=== PATIENT | female | born 1970 | race African-American/Black ===

== ENCOUNTER 2020-11-08 06:16 | Day surgery (SDC) | payer OTHER ==
[2020-11-06 22:03] LABS: COVID AG,FIA SOURCE NASOPHARYNGEAL
[~2020-11-08] VITALS: Ht 170.2 cm; Wt 128.2 kg
[~2020-11-08 06:16] MED LIST: ALBU8.5H8 IH; BUPR-93 PO; CHOL100018 PO; CYCL10 PO; DSS100 PO; FERR-89 PO; FLUT16H NASAL; FOLI0.4T6 PO; GABA-1181 PO; GLYC1TAB11 PO; HYDR-1475 PO; HYDR-3965 PO; MELO-107 PO; MONT-35 PO; OMEP20 PO; P-EP-31 PO; PRED10 PO; RANI150T7 PO; SODIUM CHLORIDE 0.9% 1,000 ML ONE; SYMB8060 IH; THEO400T3 PO; VITA1TAB22 PO
[2020-11-08] MEDS ORDERED: SODIUM CHLORIDE 0.9% 1,000 ML IV ONE (07:00)
[2020-11-08] MEDS ORDERED: MIDAZOLAM HCL 2 MG/2 ML VIAL ONE (07:32)
[2020-11-08] MEDS ORDERED: FentaNYL CITRATE PF 100 MCG/2 ML VIAL ONE (07:32)
[2020-11-08] MEDS ORDERED: MethylPREDNISolone SOD SUCC 125 MG/2 ML VIAL IVP ONE (08:45)
[2020-11-08] MEDS ORDERED: ALBUTEROL SULFATE 2.5 MG/0.5 ML NEB SOLUTION NEB ONE ×2 (16:46→16:50)
[2020-11-08] MEDS ORDERED: BENZOCAINE 20% 50 MCG/SPRAY 57 GM ONE ×2 (16:46→16:50)
[2020-11-08] MEDS ORDERED: LIDOCAINE 2% 30 ML JELLY ONE ×2 (16:49→16:50)
[2020-11-08] MEDS ORDERED: LIDOCAINE 4% 50 ML SOLUTION ONE (16:50)
[2020-11-08] MEDS ORDERED: OXYGEN THERAPY IH SCH (20:00)
== END 2020-11-08 10:10 | disposition home or self-care (01) ==
LOC: SURGERY 06:16
PROVIDERS: ATTEND Internal Medicine Critical Care Medicine
DX: R05 Cough (principal); R04.2 Hemoptysis; Z20.828 Contact with and (suspected) exposure to other viral communicable diseases; J34.89 Other specified disorders of nose and nasal sinuses; J98.8 Other specified respiratory disorders; J38.4 Edema of larynx; B37.0 Candidal stomatitis; Z98.890 Other specified postprocedural states; J45.909 Unspecified asthma, uncomplicated; D64.9 Anemia, unspecified; Z90.49 Acquired absence of other specified parts of digestive tract; Z96.653 Presence of artificial knee joint, bilateral; Z88.1 Allergy status to other antibiotic agents; Z79.899 Other long term (current) drug therapy
CPT/HCPCS: 31623; 31624; 71045; 87015; 87070; 87101; 87206; 87220; 87426; 88108; 88312; C9803; J2250; J2930; J3010; J7030; J7613; Z7610